=== PATIENT | female | born 1960 | race Caucasian/White ===

== ENCOUNTER → 2016-11-22 12:46 | Outpatient (CLI) | payer MEDICARE ==
[2015-01-06 06:20] VITALS: BMI 29.1
[~2016-11-22 12:46] MED LIST: CARDURA4 MG PO; MOBIC7.5 MG PO; NORCO 10/325 TA1 TA1 PO; NORVASC10 MG PO; PRAVACHOL20 MG PO; PRISTIQ100 MG PO; SOMA350 MG PO
== END | disposition home or self-care (01) ==
LOC: D.MRI 12:46
DX: M47.896 Other spondylosis, lumbar region (principal)

== ENCOUNTER → 2018-01-10 20:59 | Outpatient (CLI) | payer MEDICARE ==
[2015-01-06 06:20] VITALS: BMI 29.1
== END | disposition home or self-care (01) ==
LOC: D.MAMMO 11:15
DX: Z12.31 Encounter for screening mammogram for malignant neoplasm of breast (principal)

== ENCOUNTER 2018-06-13 05:00 | Day surgery (SDC) | payer MEDICARE ==
[2018-06-12 09:37] LABS: HEMATOCRIT 28.1 % (36.0-48.0); HEMOGLOBIN 9.1 g/dL (12-16); MCH 30.8 pg (26.0-34.0); MCHC 32.4 g/dL (31.0-37.0); MCV 95.3 fL (80.0-100.0); MEAN PLATELET VOLUME 9.3 fL (7.4-10.4); RBC 2.95 10x6/uL (4.00-5.40); RDW 15.4 % (11.5-14.5); WBC 7.5 10x3/uL (4.8-10.8)
[~2018-06-13] VITALS: Ht 167.6 cm; Wt 83.9 kg
--- NOTE | ~2018-06-13 | OP ---
PATIENT NAME: XAVIER MELGAR MEDICAL RECORD: [id number] :60 LOCATION:[facility] ADMISSION DATE: SURGEON: DALIA PENDLETON DPM DATE OF OPERATION: 06/13/2018 PREOPERATIVE DIAGNOSIS: Osteoarthritis of the right first met cuneiform joint. POSTOPERATIVE DIAGNOSES: Osteoarthritis of the right first met cuneiform joint. PROCEDURE: Right first met cuneiform joint fusion. ANESTHESIA: General with local infiltrate utilizing lidocaine and Marcaine plain around the proximal right mid foot. HEMOSTASIS: Right thigh tourniquet at 350 mmHg. PREOPERATIVE DETAILS: The patient was taken to the OR and placed in the operating table in a supine position followed by induction of general anesthesia and infiltration of local anesthetic. The right extremity was then prepped and draped in usual aseptic technique followed by exsanguination of extremity and inflation of tourniquet. A 15 blade was used to create a 5-6 cm linear incision over the dorsal aspect of the right medial foot overlying the first met cuneiform joint. The incision was deepened down through subcutaneous tissue being sure to avoid all vital structures. Dissection was carried down to the periosteum where periosteal incision was made as well as an incision through the dorsal aspect of the first met cuneiform joint. The joint was freed from all surrounding soft tissue structures. A sagittal saw was used to resect the joint. Temporary fixation was placed across the fusion site followed by 5-hole plate with 1 hole crossing the fusion site as a compression screw. Excellent rigid internal fixation was noted following placement of hardware. C-arm was used to verify good placement and alignment. Wound was flushed. The periosteum and joint capsule repaired with 2-0 Vicryl. The subcutaneous tissue was repaired with 4-0 Rapide and the skin was closed with 4-0 Rapide in a subcuticular technique followed by Dermabond, Adaptic, 4 x 4 and Conform were used to dress the wound followed by application of modified Templeton compression dressing. Tourniquet was deflated. POSTOPERATIVE DETAILS: The patient tolerated the procedure well and left the OR with vital signs stable and vascular status at preoperative levels. The patient was transported to recovery per anesthesia in stable condition. TRANSINT:[id number] Voice Confirmation ID: [id number] DOCUMENT ID: [id number] DALIA PENDLETON DPM at 1031 CC: [id number] DICTATION DATE: 06/13/18 0838 PHARMACY TECHNICIAN PROGRAM DIRECTOR: 06/13/[address] [facility] [address] [place] [address]
[~2018-06-13 05:00] MED LIST changes: +BACLOFEN10 MG PO; +COZAAR100 MG PO; +COZAAR50 MG PO; +FISH OIL 1,0001 CA1 PO; +FLAXSEED OIL1000 MG PO; +HYDROCHLOROTHIA25 MG PO; +OXYCONTIN10 MG PO; +TENORMIN50 MG PO
[2018-06-13] MEDS ORDERED: HYDROCODONE-APA1 TAB PO (06:12)
[2018-06-13 06:16] VITALS: BP 163/98; Ht 167.6 cm; Wt 83.9 kg
== END 2018-06-13 12:00 | disposition home or self-care (01) ==
LOC: D.OPS 05:00 → D.PAN 07:00 → D.OPS 07:00
PROVIDERS: Anesthesiology
DX: M19.071 Primary osteoarthritis, right ankle and foot (principal); M79.671 Pain in right foot; M21.41 Flat foot [pes planus] (acquired), right foot; I10 Essential (primary) hypertension; Z01.812 Encounter for preprocedural laboratory examination

== ENCOUNTER 2018-06-14 22:26 | Emergency (ER) | payer MEDICARE ==
[~2018-06-14] VITALS: Ht 167.6 cm; Wt 90.9 kg
[~2018-06-14 22:26] MED LIST changes: +HYDROCODONE-APA1 TAB PO
[2018-06-14 22:33] VITALS: Ht 167.6 cm; Wt 90.9 kg
[2018-06-15 00:17] VITALS: BP 143/55
== END 2018-06-15 00:17 | disposition home or self-care (01) ==
LOC: D.ER 22:26
DX: L76.82 Other postprocedural complications of skin and subcutaneous tissue (principal); I10 Essential (primary) hypertension

== ENCOUNTER → 2018-12-31 07:26 | Outpatient (CLI) | payer MEDICARE ==
[2018-06-14 22:33] VITALS: BMI 32.3
== END | disposition home or self-care (01) ==
LOC: D.US 07:26
PROVIDERS: ATTEND Internal Medicine Gastroenterology
DX: R10.9 Unspecified abdominal pain (principal); R11.0 Nausea

== ENCOUNTER 2019-07-02 02:58 | Emergency (ER) | payer MEDICARE ==
[~2019-07-02] VITALS: Ht 167.6 cm; Wt 85.2 kg
[2019-07-02 03:02] VITALS: Ht 167.6 cm; Wt 85.2 kg
[2019-07-02] MEDS ORDERED: BLACK COHOSH200 MG PO (03:07)
[2019-07-02] MEDS ORDERED: LASIX20 MG PO (03:07)
[2019-07-02] MEDS ORDERED: NEURONTIN 300300 MG PO (03:08)
[2019-07-02] MEDS ORDERED: KLOR-CON 1010 MEQ PO (03:08)
[2019-07-02] MEDS ORDERED: VIBRAMYCIN 100100 MG PO (04:02)
[2019-07-02 04:25] VITALS: BP 135/79
== END 2019-07-02 04:25 | disposition home or self-care (01) ==
LOC: D.ER 02:58
DX: T81.40XA Infection following a procedure, unspecified, initial encounter (principal); I10 Essential (primary) hypertension

== ENCOUNTER → 2020-07-06 12:51 | Outpatient (CLI) | payer MEDICARE ==
[2019-07-02 03:02] VITALS: BMI 30.3
[~2020-07-06 12:51] MED LIST changes: +BLACK COHOSH200 MG PO; +KLOR-CON 1010 MEQ PO; +LASIX20 MG PO; +NEURONTIN 300300 MG PO; +VIBRAMYCIN 100100 MG PO
== END | disposition home or self-care (01) ==
LOC: D.RAD 12:51
PROVIDERS: ATTEND Anesthesiology Pain Medicine
DX: M25.551 Pain in right hip (principal); M25.552 Pain in left hip